=== PATIENT | male | born 1995 | race Two or more races ===

== ENCOUNTER 2025-03-21 19:59 | Emergency (ER) | payer OTHER ==
[~2025-03-21] VITALS: Ht 172.7 cm; Wt 93.1 kg
[2025-03-21] MEDS ORDERED: SODIUM CHLORIDE 0.9% 1,000 ML IV ONE (20:15)
[2025-03-21] MEDS: ALPRAZolam 0.25 MG TAB PO ONE (20:21)
[2025-03-21 20:36] VITALS: BP 138/66; PULSE 130; RESP 20; TEMP 98; O2SAT 98
--- NOTE | 2025-03-21 20:36 | ED.PDOC ---
History of Present Illness HPI Comments 29 y/o obese M is BIBA for c/c of chest pain and palpitations. Patient reports history of polysubstance abuse and onset of symptoms after drinking copious amounts of alcohol over the past few days alongside smoking marijuana cannabis. He states on feeling as if he is having a 'heart attack.' Denies any pertinent cardiac history. Denies on having any shortness of breath, nausea, vomiting, tremors, or further acute symptoms. Chief Complaint: ETOH Time Seen by MD: 20:00 Reviewed Notes: Nurses Notes, Medications, Allergies Allergies: Coded Allergies: NO KNOWN ALLERGIES (Unverified , 03/21/25) Information Source: Patient, Emergency Med Personnel Mode of Arrival: EMS Severity: Moderate Timing: Hours Duration: Since onset Prehospital treatment: 12 Lead EKG, Manager Quantitative Past Medical History PAST MEDICAL HISTORY: Denies Surgical History: Denies all surgeries Family History Family History: Reviewed,noncontributory to illness, No family hx of Cancer, No family hx of DM, No family hx of Heart denny, No family hx of HTN, No family hx ofKidney denny, No family hx of Liver denny, No family hx of Lung denny, No family hx of Stroke Social History Smoker: Non-Smoker Alcohol: Heavy Drugs: Marijuana Lives In: Home All Other Systems: Reviewed and Negative (As per HPI) Physical Exam General Appearance: No Apparent Distress, Obese HEENT: Normal ENT Inspection, Pharynx Normal, TMs Normal Neck: Full Range of Motion, Non-Tender, Normal, Normal Inspection Respiratory: Chest Non-Tender, Lungs Clear, No Accessory Muscle Use, No Respiratory Distress, Normal Breath Sounds Cardiovascular: No Edema, No JVD, No Murmur, No Gallop, Normal Peripheral Pulses, Tachycardia (regular rhythm ) Breast Exam: Deferred Gastrointestinal: No Organomegaly, Non Tender, No Pulsatile Mass, Normal Bowel Sounds, Soft Genitalia: Deferred Pelvic: Deferred Rectal: Deferred Extremities: No calf tenderness, Normal capillary refill, Normal inspection, Normal range of motion, Non-tender, No pedal edema Musculoskeletal : Apperance: Normal Neurologic: Alert, tack puller machine II-XII nml as Tested, No Motor Deficits, No Sensory Deficits, Speech Problem (pressured speech ), Other (anxious affect and mood) Cerebellar Function: Normal Reflexes: Normal Skin: Dry, Normal Color, Warm Lymphatic: No Adenopathy Was a procedure done? Was a procedure done?: No Differential Dx Considerations may include: anxiety, angina, chest wall pain, hypochondriasis, substance abuse/dependency, delirium tremens, dehydration, electrolyte imbalance, among others X-Ray, Labs, Meds, VS Vital Signs Date Time Temp Pulse Resp B/P (MAP) Pulse Ox O2 Delivery O2 Flow Rate FiO2 03/21/25 20:36 98.0 130 20 138/66 98 98.0 03/21/25 20:16 98.3 125 24 144/107 (119) 97 98.3 03/21/25 20:00 131 Current Medications Medications (Trade) Dose Ordered Sig/Iwona Route Start Time Stop Time Status Last Admin Alprazolam (Xanax Tablet) 0.25 mg ONCE ONCE PO 03/21/25 20:15 03/21/25 20:16 DC 03/21/25 20:21 Previous history reviewed: N/A The following tests were ordered, and results were reviewed by me: N/A Additional Information was gathered from interviewing the following independent historians: EMS personnel I reviewed and agreed with the following test results read by other providers: N/A I discussed treatment and results with medical personnel and: patient Time of 1ST Reevaluation: 20:30 Reevaluation 1ST: Unchanged Time of 2ND Reevaluation: 21:05 Reevaluation 2ND: Improved Patient Education/Counseling: Diagnosis, Treatment, Prognosis, Need For Follow Up Family Education/Counseling: No Family Present Comments This is a patient who presents with chest wall pain after drinking alcohol and using marijuana. EKGs unremarkable. Patient was given Xanax with improvement of symptoms. He is stable for discharge per chest wall pain, anxiety due to substance abuse. SEPSIS Sepsis Screen Physician Orders Sodium Chloride 0.9% (03/21/25 20:15) Electrocardigram (03/21/25 20:23) Vital Signs Date Time Temp Pulse Resp B/P (MAP) Pulse Ox O2 Delivery O2 Flow Rate FiO2 03/21/25 20:36 98.0 130 20 138/66 98 98.0 03/21/25 20:16 98.3 125 24 144/107 (119) 97 98.3 03/21/25 20:00 131 Medications Medications Dose Ordered Sig/Iwona Route Start Time Stop Time Status Last Admin Dose Admin Alprazolam 0.25 mg ONCE ONCE PO 03/21/25 20:15 03/21/25 20:16 DC 03/21/25 20:21 Departure 1 Departure Time of Disposition: 21:05 Impression: Primary Impression: Chest wall pain Additional Impressions: Anxiety Substance abuse Alcohol abuse Disposition: HOME / SELF CARE / HOMELESS Condition: Good Discharged With: Self Critical Care Note Critical Care Time?: No Stability Stability form required: No Heart Score Heart Score: Heart Score Response (Comments) Value History N/A 0 EKG N/A 0 Age N/A 0 Risk Factors N/A 0 Troponin N/A 0 Total 0 I personally scribed for ANTOINETTE MAYFIELD MD ([email or web address]) on 03/21/25 at 20:36. Electronically submitted by Taj Ibarra ([email or web address]). ANTOINETTE MAYFIELD MD Mar 21, 2025 20:36
--- NOTE | 2025-03-21 21:16 | ECG ---
[facility] Test Date: 2025-03-21 Test Time: 20:00:56 Pat Name: JFEF CAUSEY Department[id number] Room: Gender: M International Trade Manager: brenton : 1995 Requested By: EMERGENCY EMERGENCY Order Number: [id number] Reading MD: Mt Silva Measurements Intervals [place] Rate: 131 P: 61 GA: 122 QRS: 102 QRSD: 101 T: -26 QT: 314 QTc: 464 Interpretive Statements Sinus tachycardia Anterolateral infarct, age indeterminate Electronically Signed On 03-23-2025 15:26:49 PST by Mt Silva Please click the below link to view image of tracing.
== END 2025-03-21 22:33 | disposition left against medical advice (07) ==
LOC: ER 19:59 → EDBD 19:59 → ER 22:33
DX: R07.89 Other chest pain (principal); F41.9 Anxiety disorder, unspecified; F19.11 Other psychoactive substance abuse, in remission; F10.10 Alcohol abuse, uncomplicated; E66.9 Obesity, unspecified; F12.90 Cannabis use, unspecified, uncomplicated; Z68.31 Body mass index [BMI] 31.0-31.9, adult
CPT/HCPCS: 93005